=== PATIENT | female | born 1945 | race Caucasian/White ===

== ENCOUNTER 2017-04-29 16:10 | Inpatient (IN) ==
[2017-04-29] MEDS ORDERED: MORPHINE 2 MG/1 ML SYRINGE IV STA ×3 (16:41→21:30)
[2017-04-29] MEDS ORDERED: ONDANSETRON 4 MG/2 ML VIAL IV STA (16:41)
[2017-04-29 16:42] LABS: Basophils # 0.1 10*3/uL (0.0-0.2); Basophils % 0.3 % (0.0-0.8); Eosinophils # 0.3 10*3/uL (0.0-0.87); Eosinophils % 1.9 % (0.00-10.9); Hematocrit 36.2 VOL% (35.7-47.0); Hemoglobin 11.5 GM/DL (12.0-16.0); Immature Granulocytes % 1.5 %; Immature Granulocytes Absolute 0.26 #; Lymphocytes # 2.3 10*3/uL (1.4-4.0); Lymphocytes % 13.8 % (21.3-54.2); Mean Corpuscular HGB Conc 31.8 GM/DL (32-36); Mean Corpuscular Hemoglobin 29 PG (27-34); Mean Corpuscular Volume 91.4 FL (87-102); Mean Platelet Volume 8.8 FL (9.6-12.0); Monocytes # 1.4 10*3/uL (0.11-0.8); Monocytes % 8.4 % (1.7-12.7); Neutrophils # 12.5 10*3/uL (1.4-7.4); Neutrophils % 74.1 % (38.7-73.9); Platelet Count 228 T/CUMM (130-400); Red Blood Count 3.96 MC/CUMM (3.8-5.5); Red Cell Distribution Width 15.7 % (9.3-17.3); White Blood Count 16.8 T/CUMM (4-12)
[2017-04-29] MEDS ORDERED: MORPHINE 2 MG/1 ML SYRINGE ONE ×3 (16:42→21:21)
[2017-04-29] MEDS ORDERED: ONDANSETRON 4 MG/2 ML VIAL ONE (16:42)
--- NOTE | 2017-04-29 16:43 | EKG Report ---
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
[2017-04-29 17:06] LABS: Alanine Aminotransferase 31 U/L (13-56); Alkaline Phosphatase 76 U/L (45-117); Aspartate Amino Transferase 60 U/L (0-37); Blood Urea Nitrogen 17 MG/DL (7-18); Calcium 8.6 MG/DL (8.5-10.1); Glucose 108 MG/DL (74-106); Osmolality,Calculated 283.3 MOS/KG (273-304); Potassium 3.7 MMOL/L (3.5-5.1); Sodium 141 MMOL/L (136-145); Total Protein 5.6 G/DL (6.4-8.3); Troponin I Only < 0.015 NG/ML (0.00-0.045)
--- NOTE | 2017-04-29 17:12 | XRay Report ---
Exam: XR abdomen complete w decub Date: 04/29/2017 4:27 PM Comparison: 11/11/2016 Indication: Generalized abdominal pain Technique:[Supine and left lateral decubitus abdomen] Findings: Nonobstructed bowel gas pattern with no free air. Diffuse arterial calcifications. Degenerative changes with prior right total hip replacement and left hip surgery with old healed left intertrochanteric femoral and right pubic bone fractures. Impression: Nonobstructed bowel gas pattern with no free air. Postoperative findings in the hips. PROCEDURE INTERPRETED AT [facility] DEPARTMENT OF RADIOLOGY Final Report Signed by: Dr. Lakeshia Wagner
[2017-04-29 17:13] LABS: Lactic Acid 0.6 MMOL/L (0.4-2.0)
[2017-04-29 17:33] LABS: Apearance,Urine CLOUDY (Clear); Bacteria,Urine Many /HPF (Few); Bilirubin,Urine Negative (Negative); Blood, Urine Small mg/dL (Negative); Glucose,Urine (UA) Negative (Negative); Ketones,Urine Negative (Negative); Mucus,Urine Many /LPF (Occasional); Nitrite,Urine Positive (Negative); Protein,Urine Negative; RBC,Urine 14 /HPF (0-4); Squamous Epithelial Cell,Urine Occasional /HPF (0-10); Urine Color Yellow (Yellow); Urine Specific Gravity 1.015 (1.001-1.035); Urine Urobilinogen < 2.0 EU/DL (0.2-1.0); WBC,Urine 153 /HPF (0-6)
[2017-04-29] MEDS ORDERED: cefTRIAXone 1,000 MG in SODIUM CHLORIDE 0.9% 100 ML IV STA (18:22)
[2017-04-29] MEDS ORDERED: SODIUM CHLORIDE 0.9% 1,000 ML IV STA (18:22)
[2017-04-29] MEDS ORDERED: cefTRIAXone 1,000 MG VIAL ONE (18:24)
--- NOTE | 2017-04-29 19:09 | CT Report ---
Referring physician: Noel Abdul EXAM: CT abdomen and pelvis with contrast DATE: 04/29/2017 COMPARISON: None REASON: Generalized abdominal pain TECHNIQUE: Axial images of the abdomen and pelvis were obtained after administration of 100 cc of Omnipaque 350 IV contrast. Oral contrast was also administered. Coronal and sagittal reformatted images were also provided. Total DLP is 651.30 mGy*cm. FINDINGS: Small pleural effusions. Diffuse groundglass opacities with honeycombing/saccular bronchiectasis especially in the right middle lobe. Subsegmental atelectasis. Coronary artery calcifications. The liver is normal in size with significant distention of the gallbladder with hyperdense folds and wall thickening. Probable minimal pericholecystic fluid with no obvious calcified gallstones. CBD and bile ducts are minimally dilated. CBD measures 7 mm in the head of the pancreas. The spleen, pancreas, and adrenal glands have an unremarkable appearance. Cortical scarring in the kidneys with nonobstructing renal calculi with the largest measuring 3.5 mm in the right mid pole location. Calcification in the wall of the nondilated abdominal aorta with no adjacent adenopathy. No dilatation of the small bowel. Increased fecal material in the colon with no evidence of diverticulitis, appendicitis, free air, or free fluid. Atrophic uterus with limited evaluation of the urinary bladder due to metallic artifact. Prior right total hip replacement and postoperative findings in the left left hip. Old healed right pubic bone and left intertrochanteric femoral fracture. Evidence of prior compression fractures of all visualized thoracic and lumbar vertebra. Possible old healed fracture of the inferior sternum. IMPRESSION: Small pleural effusions with honeycombing/saccular bronchiectasis especially in the right middle lobe with diffuse groundglass opacities which can be seen with edema/infiltration. Significant distention of the gallbladder with gallbladder folds and wall thickening with probable minimal pericholecystic fluid. These findings can be seen with acute cholecystitis with associated minimal dilatation of the bile ducts. Ultrasound and/or biliary scan with ejection fraction may be helpful for further evaluation. Diffuse arterial calcifications including coronary artery calcifications, cortical scarring in the kidneys with nonobstructing renal calculi, atrophic uterus, prior right total hip replacement and postoperative findings a left hip, old healed right pubic bone and left intertrochanteric femoral fractures with osteopenia and fractures of all visualized vertebra. Possible additional old healed fracture of the inferior sternum. The CT exam was performed using one or more of the following dose reduction techniques: Automated exposure control and adjustment of the mA and/or kV according to patient size. PROCEDURE INTERPRETED AT [facility] DEPARTMENT OF RADIOLOGY Final Report Signed by: Dr. Lakeshia Wagner
--- NOTE | 2017-04-29 20:30 | Emergency Department Note ---
Madyson Johnson [place], am scribing for, and in the presence of, Noel Abdul Jr., MD 16:37. Chantell Johnson Marvin Jr., MD, personally performed the services described in this documentation, ascribed by Jorge Luis Coughlin in my presence, and it is both accurate and complete [id number] . Arrival - Arrival Chief Complaint: Chest Pain ED Nursing Triage Note: c/o cp and abd cramping onset today Mode of Arrival: Stretcher Limitations: No Limitations Source: Patient Time Seen by Provider: 04/29/17 16:27 - History of Present Illness HPI Narrative: This is a 71 y/o white female presenting to the ED with c/o generalized abdominal pain with more right sided abdominal pain than left. She states the pain onset this morning at approximately 1000 and has worsened throughout the course of the day. This has happened to her in the past. She describes the pain as cramping and believes she may have been food poisoned. Pt took Lortab for her pain but states this did not help. Pt is nauseated and has dry heaved but denies vomiting, fever, chills, diarrhea, back pain, KENNY, vision change, and dysuria. Her PMHx is consistent with HTN, cardiac dysrhythmia, CHF, anxiety disorder, depression, cerebrovascular accident, pulmonary HTN, and reoccuring urinary tract infection. Consistency: constant Severity: moderate Allergies/Adverse Reactions: Allergies Allergy/AdvReac Type Severity Reaction Status Date / Time promethazine [From Phenergan] Allergy Intermediate Cramping Verified 12/26/16 15 :06 of the Muscles Home Medications: Home Medications Medication Instructions Recorded Confirmed Type Sertraline HCl 50 mg PO DAILY 04/03/15 12/28/16 History dilTIAZem HCl [Cartia XT] 120 mg PO DAILY 04/03/15 12/28/16 History Metoprolol Tartrate Tab [Lopressor 50 mg PO BID #30 tablet 04/04/15 12/28/16 Rx Tab] Docusate Sodium Cap [Colace Cap] 100 mg PO BID #60 capsule 04/20/15 12/28/16 Rx HYDROcodone/ACETAMIN 10-325 [[place] 1 tablet PO Q4-6H PRN 02/05/16 12/28/16 History 10-325] Sildenafil [Revatio] 20 mg PO TID #90 tablet 02/09/16 12/28/16 Rx acetaZOLAMIDE TAB [Diamox Tab] 250 mg PO BID #60 tablet 02/09/16 12/28/16 Rx Apixaban [Eliquis] 2.5 mg PO BID 12/07/16 12/28/16 History Pantoprazole Tab [Protonix Tab] 40 mg PO DAILY 12/07/16 12/28/16 History Potassium Chloride 10 meq PO BID 12/07/16 12/28/16 History Sertraline [Zoloft] 50 mg PO DAILY 12/07/16 12/28/16 History predniSONE TAB [PredniSONE] 20 mg PO DAILY 12/07/16 12/28/16 History Furosemide 20 mg PO DAILY 12/28/16 12/28/16 History Methenamine Hippurate 1 gm PO BID 12/28/16 12/28/16 History Review of System - Review of System 12 point system: reviewed and no additional remarkable complaints except as stated - Review of System Constitutional: Absent: chills, fever, weakness Eyes: Absent: vision change Head/Ears/Nose/Throat: Absent: nasal drainage Respiratory: Absent: cough, wheezing Cardiovascular: Absent: chest pain, dyspnea on exertion, syncope Gastrointestinal: Present: abdominal pain (generalized ), nausea (dry heaved). Absent: vomiting, diarrhea Genitourinary female: Absent: dysuria Musculoskeletal: Absent: arm pain, back pain, leg pain, neck pain Skin: Absent: rash Neurological: Absent: headache, weakness, confusion, vertigo Psychiatric: Absent: anxiety Endocrine: Absent: fatigue Allergic/Immunologic: Absent: facial swelling Medical,Surgical,& Family Hx - Medical History Cardio: History of: Cardiac Dysrhythmia, Cerebrovascular Disease, CHF, Hypertension, Cardiovascular Problems Psychological: History of: Anxiety Disorders, Depression Neurology: History of: Cerebrovascular Accident (08/2013), Peripheral Neuropathy No history of: Seizures HEENT: History of: Ear Problem ([place]), HEENT Problems Rheumatology: History of;: Rheumatoid Arthritis (bilateral knee replacement), Rheumatological Problems Respiratory: History of: Pulmonary Hypertension, Pneumonia, Respiratory Problems (suspected pulmonary fibrosis) Genitourinary: History of: Recurring Urinary Tract Infections Gastrointestinal: History of: GERD Musculoskeletal: History of: Back/Neck Problems ("shattered spine", patient has a degenerative atlantoaxial joint and odonto), Degenerative Disk Disease, Musculoskeletal Problems (septic in knee, 3 cervical vertabra fx,MUST HAVE C- COLLAR ON AMBULATING) Hematology: No history of: Blood Transfusion Reaction - Surgical History Thoracic Surgeries: Patient denies;: Organ Transplant, Lobectomy Neurologic Surgeries: Patient denies: Neurologic Surgery HEENT Surgeries: Patient denies: Eye Surgery, Tonsilectomy & Adenoidectomy Orthopedic Surgeries: Surgical HX of;: Total Hip Replacement (bl hip replacement ), Total Knee Replacement (BL KNEE REPLACEMENT) - Family History Family History: Reports;: Family Cancer ([place]), Family Hypertension (son), Family Psychiatric Problems (mother alzheimer's) - Social History Smoking Status: Never smoker Frequency of Alcohol Use: None Type of Drug Use: None Exam Physical Examination: General: Well-developed well-nourished, no apparent distress. Head: Normocephalic, atraumatic. Eyes: PERRLA, EOMI. Nose: No obvious acute deformities or discharge. Mouth: No obvious acute injury. Neck: Full range of motion without obvious pain. No midline tender to palpation. Lymphatic: no significant lymphadenopathy noted. Lungs: Clear to auscultation bilaterally, normal and equal air movement bilaterally, no obvious rales or wheezing. Heart: regular rate and rhythm, no obvious mummers. Abdomen: Nondistended, soft, tender to palpation which localizes a little more to the right lower quadrant. Skin: No obivous acute lesions noted Musculoskeletal: Chronic joint deformities consistent with rheumatoid arthritis. Sister and patient say this is chronic and not changed. Neurological: No focal findings, cranial nerves II through XII grossly normal. Psychiatric: Appropriate mood.. : Deferred Vital Signs: Vital Signs Temperature 96.4 F L 04/29/17 16:14 Pulse Rate 49 L 04/29/17 16:14 Respiratory Rate 18 04/29/17 16:14 Blood Pressure 169/82 04/29/17 16:14 O2 Sat by Pulse Oximetry 99 04/29/17 16:14 Course Course Narrative: Differential diagnosis, appendicitis, bowel obstruction, constipation, inflammatory diseases, diverticulitis - Reevaluation(s) Reevaluation #1: Patient's clinical picture and test consistent with acute cholecystitis and urinary tract infection. I talked to Dr. Dayna White and he asked to admit the patient to Dr. Murcia and he would consult. I then called Dr. Murcia and he accepts admission for this patient. He says put her on Zosyn, pain medicine , IV fluids Time: 20:20 Results - Labs CBC & BMP: 04/29/17 16:34 04/29/17 16:34 Lab Results: I have reviewed the patients labs Labs: Laboratory Tests 04/29/17 16:34 WBC 16.8 H RBC 3.96 Hgb 11.5 L Hct 36.2 MCV 91.4 MCH 29 MCHC 31.8 L RDW 15.7 Plt Count 228 MPV 8.8 L Neut % (Auto) 74.1 H Lymph % (Auto) 13.8 L Grant % (Auto) 8.4 Eos % (Auto) 1.9 Baso % (Auto) 0.3 Neut # (Auto) 12.5 H Lymph # (Auto) 2.3 Grant # (Auto) 1.4 H Eos # (Auto) 0.3 Baso # (Auto) 0.1 Immature Gran % 1.5 Nucleated RBC % 0.0 Immature Gran # 0.26 Nucleated RBCs # 0.00 Laboratory Tests 04/29/17 16:34 Urine Color Yellow Urine Appearance Cloudy Urine pH 5.0 Ur Specific [place] 1.015 Urine Protein Negative Urine Glucose (UA) Negative Urine Ketones Negative Urine Blood Small Urine Nitrate Positive H Urine Bilirubin Negative Urine Urobilinogen < 2.0 H Urine Leukocytes Moderate H Urine RBC 14 Urine WBC 153 Ur Squamous Epith Cells Occasional Urine Bacteria Many Urine Mucus Many Ur Culture Indicated? Results to follow - EKG EKG results: interpreted by ERMD (Heart rate 50, normal sinus rhythm, narrow complex QRS complexes without obvious acute ST changes.) - Diagnostic Findings Procedure: Abdominal x-ray: report reviewed by me, image reviewed by me ( Nonobstructed bowel gas pattern with no free air. Postoperative findings in the hips. ), CT Abdomen and Pelvis: report reviewed by me, image reviewed by me (Small pleural effusions with honeycombing/saccular bronchiectasis especially in the right middle lob with diffuse groundglass opacities which can be seen with edema/infiltration. Signifcant distention of the gallbladder with gallbladder folds and wall thickening with probable minimal pericholecysytic fluid. These findings can be seen with acute cholecystitis with associated minimal dilation of the bile ducts. ) Disposition Clinical Impression: Abdominal pain, Acute cholecystitis, Urinary tract infection Case discussed with: patient, patient's family Disposition: Still a Patient Condition: Stable Time of Disposition: 20:29
[2017-04-29] MEDS: DEXTROSE 5% NACL 0.45% 1,000 ML IV SCH (22:12)
[2017-04-29] MEDS: PIPERACILLIN/TAZOBACTAM 3,375 MG in SODIUM CHLORIDE 0.9% 100 ML IV SCH (22:16)
[2017-04-29] MEDS: HYDROmorphone 2 MG/1 ML VIAL IV PRN (22:33)
[2017-04-30] MEDS: ONDANSETRON 4 MG/2 ML VIAL IV PRN (04:13)
[2017-04-30] MEDS: HYDROmorphone 2 MG/1 ML VIAL IV PRN ×5 (05:35→23:47)
[2017-04-30] MEDS: PIPERACILLIN/TAZOBACTAM 3,375 MG in SODIUM CHLORIDE 0.9% 100 ML IV SCH ×3 (05:37→20:50)
--- NOTE | 2017-04-30 08:04 | Family Practice History&Phys ---
Assessment and Plan (1) Acute cholecystitis Status: Acute Assessment and plan: 04/30/2017: Ultrasound gallbladder will be ordered. Surgery has been consulted Current Visit: Yes History of Present Illness Chief complaint: Abdominal pain History of present illness: Ms. Chapman is a 71 year old female Patient is a 71-year-old white female with long history of poorly controlled rheumatoid arthritis who presents emergency room with increasing abdominal pain with nausea and vomiting. She has not had any fever according the family. She does have a history of recurrent urinate tract infections for which she has been taking Hiprex for prophylaxis. Patient states she does not have any dysuria or frequency. Patient states she cannot keep anything down. Seen in the emergency room found to have a dilated gallbladder with pericholecystic fluid. Her lipase was normal as were her liver function studies. She is a very poor candidate for surgery and she is on blood thinners and has been on long-term steroid use. Her wound healing would certainly be impaired. I think she needs a gallbladder ultrasound and surgery has been consulted. Home Medications Medication Instructions Recorded Confirmed Type dilTIAZem HCl [Cartia XT] 120 mg PO DAILY 04/03/15 04/30/17 History Metoprolol Tartrate Tab [Lopressor 50 mg PO BID #30 tablet 04/04/15 04/30/17 Rx Tab] Docusate Sodium Cap [Colace Cap] 100 mg PO BID #60 capsule 04/20/15 04/30/17 Rx HYDROcodone/ACETAMIN 10-325 [[place] 1 tablet PO Q4-6H PRN 02/05/16 04/30/17 History 10-325] Sildenafil [Revatio] 20 mg PO TID #90 tablet 02/09/16 04/30/17 Rx acetaZOLAMIDE TAB [Diamox Tab] 250 mg PO BID #60 tablet 02/09/16 04/30/17 Rx Apixaban [Eliquis] 2.5 mg PO BID 12/07/16 04/30/17 History Pantoprazole Tab [Protonix Tab] 40 mg PO DAILY 12/07/16 04/30/17 History Potassium Chloride 10 meq PO BID 12/07/16 04/30/17 History Sertraline [Zoloft] 50 mg PO DAILY 12/07/16 04/30/17 History predniSONE TAB [PredniSONE] 20 mg PO DAILY 12/07/16 04/30/17 History Furosemide 20 mg PO DAILY 12/28/16 04/30/17 History Methenamine Hippurate 1 gm PO BID 12/28/16 04/30/17 History Allergies Allergy/AdvReac Type Severity Reaction Status Date / Time promethazine [From Phenergan] Allergy Intermediate Cramping Verified 12/26/16 15 :06 of the Muscles - Constitutional Constitutional: Present: weakness. Absent: chills, fever(s), night sweats, weight gain, weight loss - EENT Eyes: Absent: blurry vision, loss of vision Ears: Absent: decreased hearing, ear pain Nose, mouth and throat: Absent: nasal congestion, sinus pressure, sore throat - Cardiovascular Cardiovascular: Present: dyspnea on exertion. Absent: chest pain at rest, claudication, dyspnea, orthopnea, palpitations, PND - Respiratory Respiratory: Absent: cough, dyspnea, wheezing - Gastrointestinal Gastrointestinal: Present: abdominal pain, nausea, vomiting. Absent: hematemesis, hematochezia - Genitourinary Genitourinary: Absent: dysuria, urinary frequency, urinary hesitancy - Musculoskeletal Musculoskeletal: Present: arthralgias, back pain, joint swelling - Neurological Neurological: Absent: abnormal gait, convulsions, dizziness, focal weakness, numbness, radicular pain - Psychiatric Psychiatric: Absent: anxiety, confusion, depression - Endocrine Endocrine: Absent: fatigue, polydipsia, polyphagia - Hematologic/Lymphatic Hematologic/Lymphatic: Absent: easy bleeding, easy bruising Medical,Surgical,& Family Hx - Medical History Cardio: History of: Cardiac Dysrhythmia, Cerebrovascular Disease, CHF, Hypertension, Cardiovascular Problems Psychological: History of: Anxiety Disorders, Depression Neurology: History of: Cerebrovascular Accident (08/2013), Peripheral Neuropathy No history of: Seizures HEENT: History of: Ear Problem ([place]), HEENT Problems Rheumatology: History of;: Rheumatoid Arthritis (bilateral knee replacement), Rheumatological Problems Respiratory: History of: COPD, Pulmonary Hypertension, Pneumonia, Respiratory Problems (suspected pulmonary fibrosis) No history of: Obstructive Sleep Apnea (uses cpap at night R/T pulmonary fibrosis) Genitourinary: History of: Recurring Urinary Tract Infections Gastrointestinal: History of: GERD Musculoskeletal: History of: Back/Neck Problems ("shattered spine", patient has a degenerative atlantoaxial joint and odonto), Degenerative Disk Disease, Musculoskeletal Problems (septic in knee, 3 cervical vertabra fx,MUST HAVE C- COLLAR ON AMBULATING) Hematology: History of: Anemia (chronic) No history of: Blood Transfusion Reaction - Surgical History Thoracic Surgeries: Patient denies;: Organ Transplant, Lobectomy Neurologic Surgeries: Patient denies: Neurologic Surgery HEENT Surgeries: Patient denies: Eye Surgery, Tonsilectomy & Adenoidectomy Orthopedic Surgeries: Surgical HX of;: Total Hip Replacement (bl hip replacement ), Total Knee Replacement (BL KNEE REPLACEMENT) - Family History Family History: Reports;: Family Cancer (SISTER), Family Hypertension (son), Family Psychiatric Problems (mother alzheimer's) - Social History Smoking Status: Never smoker Frequency of Alcohol Use: None Type of Drug Use: None Exam - Constitutional Vitals: Period Temp Pulse Resp BP Sys/Carroll Pulse Ox Last 24 Hr 96.4 F-98.5 F 49-98 18-24 113-169/61-82 93-99 Exam: General: Objective patient is a well-developed white female in no acute distress. She is able to give good history when she is able to hear the questions. He is quite hard of hearing. HEENT: Pupils equal and reactive to light. Patent nares and airway Neck: No meningismus, adenopathy, thyromegaly. There are no auscultated carotid bruits. Cardiovascular: Regular rhythm. No murmurs or gallops Chest: Patient has scattered inspiratory and expiratory rales and rhonchi. This is unchanged from prior exams. Abdomen: Patient's noted to have direct right upper quadrant tenderness with positive Lewis sign. Bowel sounds were appreciated.. Neuro: Cranial nerves intact and DTRs and strength symmetric in all extremities. Dermatologic: No evidence of abnormal lesions or masses. Musculoskeletal: Patient suffering the ravages of rheumatoid arthritis with multiple joint deformities and swelling. Extremities: There is no calf swelling or tenderness. Results - Labs CBC & BMP: 04/29/17 16:34 04/29/17 16:34 Lab Results: I have reviewed the past 24 hour labs
--- NOTE | 2017-04-30 09:23 | General Surg History&Physical ---
Assessment and Plan - Time spent with patient Time spent with patient: Greater than 30 minutes (1) Acute cholecystitis Status: Acute Assessment and plan: I think this is likely acute acalculous cholecystitis. We will confirm this with ultrasound. If this is the case then I think she would best be treated with percutaneous cholecystostomy. I discussed her options for treatment with her and her daughter at length. She is clearly a high risk for laparoscopic cholecystectomy for perioperative complications morbidity and mortality. I think that she would do better with percutaneous drainage if this is the case. We can arrange this today through interventional radiology. I agree with IV antibiotics. Current Visit: Yes History of Present Illness Chief complaint: Abdominal pain History of present illness: Ms. Chapman is a 71 year old female Who developed upper abdominal pain mostly in the right upper quadrant yesterday. Pain has been constant. It is been worse with movement. It is been associated with nausea. CT scan of her abdomen showed a distended gallbladder. The pain is moderate in severity and does not radiate. She does not know of aggravating or alleviating factors. Home Medications Medication Instructions Recorded Confirmed Type dilTIAZem HCl [Cartia XT] 120 mg PO DAILY 04/03/15 04/30/17 History Metoprolol Tartrate Tab [Lopressor 50 mg PO BID #30 tablet 04/04/15 04/30/17 Rx Tab] Docusate Sodium Cap [Colace Cap] 100 mg PO BID #60 capsule 04/20/15 04/30/17 Rx HYDROcodone/ACETAMIN 10-325 [[place] 1 tablet PO Q4-6H PRN 02/05/16 04/30/17 History 10-325] Sildenafil [Revatio] 20 mg PO TID #90 tablet 02/09/16 04/30/17 Rx acetaZOLAMIDE TAB [Diamox Tab] 250 mg PO BID #60 tablet 02/09/16 04/30/17 Rx Apixaban [Eliquis] 2.5 mg PO BID 12/07/16 04/30/17 History Pantoprazole Tab [Protonix Tab] 40 mg PO DAILY 12/07/16 04/30/17 History Potassium Chloride 10 meq PO BID 12/07/16 04/30/17 History Sertraline [Zoloft] 50 mg PO DAILY 12/07/16 04/30/17 History predniSONE TAB [PredniSONE] 20 mg PO DAILY 12/07/16 04/30/17 History Furosemide 20 mg PO DAILY 12/28/16 04/30/17 History Methenamine Hippurate 1 gm PO BID 12/28/16 04/30/17 History Allergies Allergy/AdvReac Type Severity Reaction Status Date / Time promethazine [From Phenergan] Allergy Intermediate Cramping Verified 12/26/16 15 :06 of the Muscles Medical,Surgical,& Family Hx - Medical History Cardio: History of: Cardiac Dysrhythmia, Cerebrovascular Disease, CHF, Hypertension, Cardiovascular Problems Psychological: History of: Anxiety Disorders, Depression Neurology: History of: Cerebrovascular Accident (08/2013), Peripheral Neuropathy No history of: Seizures HEENT: History of: Ear Problem ([place]), HEENT Problems Rheumatology: History of;: Rheumatoid Arthritis (bilateral knee replacement), Rheumatological Problems Respiratory: History of: COPD, Pulmonary Hypertension, Pneumonia, Respiratory Problems (suspected pulmonary fibrosis) No history of: Obstructive Sleep Apnea (uses cpap at night R/T pulmonary fibrosis) Genitourinary: History of: Recurring Urinary Tract Infections Gastrointestinal: History of: GERD Musculoskeletal: History of: Back/Neck Problems ("shattered spine", patient has a degenerative atlantoaxial joint and odonto), Degenerative Disk Disease, Musculoskeletal Problems (septic in knee, 3 cervical vertabra fx,MUST HAVE C- COLLAR ON AMBULATING) Hematology: History of: Anemia (chronic) No history of: Blood Transfusion Reaction - Surgical History Thoracic Surgeries: Patient denies;: Organ Transplant, Lobectomy Neurologic Surgeries: Patient denies: Neurologic Surgery HEENT Surgeries: Patient denies: Eye Surgery, Tonsilectomy & Adenoidectomy Orthopedic Surgeries: Surgical HX of;: Total Hip Replacement (bl hip replacement ), Total Knee Replacement (BL KNEE REPLACEMENT) - Family History Family History: Reports;: Family Cancer ([place]), Family Hypertension (son), Family Psychiatric Problems (mother alzheimer's) - Social History Smoking Status: Never smoker Frequency of Alcohol Use: None Type of Drug Use: None Exam - Constitutional Vitals: Period Temp Pulse Resp BP Sys/Carroll Pulse Ox Last 24 Hr 96.4 F-98.5 F 49-98 18-24 113-169/61-82 93-99 General appearance: no acute distress - Head Head exam: Present: normocephalic - Eye Eye exam: Absent: scleral icterus - ENT Mouth exam: Present: normal voice - Respiratory Respiratory exam: Present: clear to auscultation bilaterally. Absent: accessory muscle use - Cardiovascular Cardiovascular exam: Present: RRR - GI/Abdominal GI/Abdominal exam: Present: tenderness, soft. Absent: distended, guarding, Lewis's sign, rebound - Extremities Exam Extremities exam: Absent: edema - Back Exam Back exam: Present: normal inspection - Neurological Exam Neurological exam: Present: alert, oriented X3. Absent: motor sensory deficit Speech: Present: normal - Skin Skin exam: Present: normal color - Constitutional Constitutional: Present: anorexia. Absent: chills, fever(s) - Cardiovascular Cardiovascular: Present: dyspnea, dyspnea on exertion. Absent: chest pain at rest, chest pain with activity, syncope - Respiratory Respiratory: Present: dyspnea, dyspnea on exertion. Absent: cough, hemoptysis - Gastrointestinal Gastrointestinal: Present: abdominal pain, nausea. Absent: hematemesis, hematochezia, vomiting, jaundice - Genitourinary Genitourinary: Absent: hematuria - Musculoskeletal Musculoskeletal: Absent: back pain - Neurological Neurological: Absent: focal weakness, syncope - Endocrine Endocrine: Absent: polyuria Hematologic/Lymphatic: Absent: easy bleeding, easy bruising Results - Labs CBC & BMP: 04/29/17 16:34 04/29/17 16:34 Lab Results: I have reviewed the past 24 hour labs - Diagnostic Findings Procedure: CT Abdomen and Pelvis: report reviewed by me, Ultrasound: pending
--- NOTE | 2017-04-30 09:30 | Ultrasound Report ---
US gallbladder Indication: Distended gallbladder. Right upper quadrant abdominal pain. Comparison: None. Technique: Using transcutaneous probe, ultrasound imaging of the right upper quadrant was performed. Ultrasound images were captured and stored. Imaged structures include the liver, gallbladder, pancreas, right kidney, aorta, and inferior vena cava. Findings: Pancreas is not well-visualized. Images submitted of the liver demonstrate no focal hepatic mass. Architectural detail was not well visualized and images appear dark. Color flow is present within the interrogated portal and hepatic venous segments. The gallbladder demonstrates at least one shadowing partially calcified to calcified stone within the neck of the gallbladder. Additional stones are suggested. Small amount of pericholecystic fluid is present. The gallbladder wall measures up to 3.5 mm. Common bile duct measures 4.5 mm. Right kidney measures 9.7 cm in craniocaudal dimension. Aorta and inferior vena cava are not included on this study secondary to bowel gas. Impression: 1. Combination of gallbladder wall thickening in the setting of calcified gallstones and pericholecystic fluid is considered compatible with acute cholecystitis. 04/30/2017 9:25 AM PROCEDURE INTERPRETED AT [facility] DEPARTMENT OF RADIOLOGY Final Report Signed by: Dr. Leroy Martin
[2017-04-30] MEDS: FUROSEMIDE 20 MG TABLET PO SCH (09:37)
[2017-04-30] MEDS: predniSONE 20 MG TABLET PO SCH (09:37)
[2017-04-30] MEDS: PANTOPRAZOLE 40 MG TABLET PO SCH (09:37)
[2017-04-30] MEDS: DILTIAZEM CD 120 MG CAPSULE PO SCH (09:48)
[2017-04-30] MEDS: DOCUSATE SODIUM 100 MG CAPSULE PO SCH ×2 (09:49→20:20)
[2017-04-30] MEDS: acetaZOLAMIDE 250 MG TABLET PO SCH ×2 (09:49→20:21)
[2017-04-30] MEDS: METHENAMINE HIPPURATE 1 GM TABLET PO SCH ×2 (09:49→20:21)
[2017-04-30] MEDS: SILDENAFIL 20 MG TABLET PO SCH ×3 (09:50→20:21)
[2017-04-30] MEDS: SERTRALINE 50 MG TABLET PO SCH (09:50)
[2017-04-30] MEDS: METOPROLOL TARTRATE 50 MG TABLET PO SCH ×2 (09:50→20:21)
[2017-04-30] MEDS: POTASSIUM CHLORIDE 10 MEQ TABLET PO SCH ×2 (09:50→20:21)
[2017-04-30] MEDS: DEXTROSE 5% NACL 0.45% 1,000 ML IV SCH ×2 (10:00→19:57)
[2017-04-30] MEDS: MORPHINE 2 MG/1 ML SYRINGE IV PRN ×2 (12:56→16:46)
--- NOTE | 2017-04-30 16:54 | Inventional Radiology Consult ---
Assessment and Plan - Time spent with patient Time spent with patient: Less than 30 minutes (1) Acute cholecystitis Problem details: distended glabladder with RUQ pain Status: Acute Assessment and plan: Not a good surgical candidate as noted in the surgical H&P. I reviewed the imaging and agree with the assessment at this point. I discussed the procedure with the patient and daughter. All questions were answered. Risks and benefits were discussed. We will plan for the case traversing in the morning. Patient should be n.p.o. after midnight. Current Visit: Yes IR Consult - Data of Consult Patient: new to practice Consult date: 04/30/17 Requesting Physician: Jun Mcintosh III. - Consult Narrative Reason for consult: acalculous cholecystitis History of present illness: Chapman is a 71 year old F Admitted with right upper quadrant pain. Imaging demonstrates a distended gallbladder and ultrasound demonstrates gallbladder wall thickening without stones, which is most consistent with acalculous cholecystitis. On my interview, the patient is in some distress with right upper quadrant pain. At times, she is however drowsy and appears to fall asleep briefly. Only major complaints are being n.p.o. all day. She has no chest pain or shortness of breath although she does have a history of pulmonary fibrosis and immunosuppression due to long-term high-dose steroids for chronic arthritis. ASA level: III. - Home Medications and Allergies Home Medications: Home Medications Medication Instructions Recorded Confirmed Type RX: dilTIAZem HCl [Cartia XT] 120 mg PO DAILY 04/03/15 04/30/17 History RX: Metoprolol Tartrate Tab 50 mg PO BID #30 tablet 04/04/15 04/30/17 Rx [Lopressor Tab] RX: Docusate Sodium Cap [Colace 100 mg PO BID #60 capsule 04/20/15 04/30/17 Rx Cap] RX: HYDROcodone/ACETAMIN 10-325 1 tablet PO Q4-6H PRN 02/05/16 04/30/17 History [Hart 10-325] RX: Sildenafil [Revatio] 20 mg PO TID #90 tablet 02/09/16 04/30/17 Rx RX: acetaZOLAMIDE TAB [Diamox Tab] 250 mg PO BID #60 tablet 02/09/16 04/30/17 Rx RX: Apixaban [Eliquis] 2.5 mg PO BID 12/07/16 04/30/17 History RX: Pantoprazole Tab [Protonix Tab] 40 mg PO DAILY 12/07/16 04/30/17 History RX: Potassium Chloride 10 meq PO BID 12/07/16 04/30/17 History RX: Sertraline [Zoloft] 50 mg PO DAILY 12/07/16 04/30/17 History RX: predniSONE TAB [PredniSONE] 20 mg PO DAILY 12/07/16 04/30/17 History RX: Furosemide 20 mg PO DAILY 12/28/16 04/30/17 History RX: Methenamine Hippurate 1 gm PO BID 12/28/16 04/30/17 History Allergies/Adverse Reactions: Allergies Allergy/AdvReac Type Severity Reaction Status Date / Time promethazine [From Phenergan] Allergy Intermediate Cramping Verified 12/26/16 15 :06 of the Muscles 12 point system: reviewed and no additional remarkable complaints except as stated - Constitutional Constitutional: Present: fatigue, fever(s) - Cardiovascular Cardiovascular: Absent: chest pain at rest - Respiratory Respiratory: Present: dyspnea on exertion, wheezing - Musculoskeletal Musculoskeletal: Present: arthralgias, joint swelling, limited range of motion - Hematologic/Lymphatic Hematologic/Lymphatic: Present: easy bruising Medical,Surgical,& Family Hx - Medical History Cardio: History of: Cardiac Dysrhythmia, Cerebrovascular Disease, CHF, Hypertension, Cardiovascular Problems Psychological: History of: Anxiety Disorders, Depression Neurology: History of: Cerebrovascular Accident (08/2013), Peripheral Neuropathy No history of: Seizures HEENT: History of: Ear Problem ([place]), HEENT Problems Rheumatology: History of;: Rheumatoid Arthritis (bilateral knee replacement), Rheumatological Problems Respiratory: History of: COPD, Pulmonary Hypertension, Pneumonia, Respiratory Problems (suspected pulmonary fibrosis) No history of: Obstructive Sleep Apnea (uses cpap at night R/T pulmonary fibrosis) Genitourinary: History of: Recurring Urinary Tract Infections Gastrointestinal: History of: GERD Musculoskeletal: History of: Back/Neck Problems ("shattered spine", patient has a degenerative atlantoaxial joint and odonto), Degenerative Disk Disease, Musculoskeletal Problems (septic in knee, 3 cervical vertabra fx,MUST HAVE C- COLLAR ON AMBULATING) Hematology: History of: Anemia (chronic) No history of: Blood Transfusion Reaction - Surgical History Thoracic Surgeries: Patient denies;: Organ Transplant, Lobectomy Neurologic Surgeries: Patient denies: Neurologic Surgery HEENT Surgeries: Patient denies: Eye Surgery, Tonsilectomy & Adenoidectomy Orthopedic Surgeries: Surgical HX of;: Total Hip Replacement (bl hip replacement ), Total Knee Replacement (BL KNEE REPLACEMENT) - Family History Family History: Reports;: Family Cancer ([place]), Family Hypertension (son), Family Psychiatric Problems (mother alzheimer's) - Social History Smoking Status: Never smoker Frequency of Alcohol Use: None Type of Drug Use: None Exam - Labs CBC & BMP: 04/29/17 16:34 04/29/17 16:34 Lab Results: I have reviewed the past 24 hour labs Image Studies: u/s and CT imaging reviewed - Constitutional Vitals: Period Temp Pulse Resp BP Sys/Carroll Pulse Ox Last 24 Hr 97.4 F-99.0 F 67-112 18-24 97-151/55-79 93-99 General appearance: normal weight - Eye Eye exam: Present: EOMI, scleral icterus - ENT ENT exam: Present: other (very hard of hearing) - Respiratory Respiratory exam: Present: clear to auscultation bilaterally, prolonged expiratory phase. Absent: stridor, wheezes - Cardiovascular Cardiovascular exam: Present: regular rate and rhythm - GI/Abdominal GI/Abdominal exam: Present: guarding, hyperactive bowel sounds, tenderness (RUQ) - Neurological Exam Neurological exam: Present: alert, oriented X3 - Psychiatric Psychiatric exam: Present: normal affect, normal mood - Skin Skin exam: Present: normal color, dry
[2017-04-30 18:22] LABS: INR 1.2; PT Patient Result 12.4 SECS
[2017-05-01] MEDS: DEXTROSE 5% NACL 0.45% 1,000 ML IV SCH ×2 (01:50→12:49)
[2017-05-01] MEDS: MORPHINE 2 MG/1 ML SYRINGE IV PRN (03:13)
[2017-05-01] MEDS: ONDANSETRON 4 MG/2 ML VIAL IV PRN (03:22)
[2017-05-01] MEDS: PIPERACILLIN/TAZOBACTAM 3,375 MG in SODIUM CHLORIDE 0.9% 100 ML IV SCH ×3 (05:17→20:44)
[2017-05-01] MEDS: HYDROmorphone 2 MG/1 ML VIAL IV PRN ×2 (05:34→09:07)
[2017-05-01] MEDS: DILTIAZEM CD 120 MG CAPSULE PO SCH ×2 (07:12→08:03)
[2017-05-01] MEDS: METOPROLOL TARTRATE 50 MG TABLET PO SCH ×3 (07:12→20:47)
[2017-05-01] MEDS: SODIUM CHLORIDE 0.45% 1,000 ML IV SCH (07:25)
[2017-05-01] MEDS ORDERED: fentaNYL 100 MCG/2 ML VIAL ONE (07:42)
[2017-05-01] MEDS ORDERED: MIDAZOLAM 2 MG/2 ML VIAL ONE (07:43)
[2017-05-01] MEDS ORDERED: MIDAZOLAM 2 MG/2 ML VIAL IV ONE (08:00)
[2017-05-01] MEDS ORDERED: fentaNYL 100 MCG/2 ML VIAL IV ONE (08:00)
[2017-05-01] MEDS ORDERED: DIAZEPAM 5 MG TABLET PO ONE (08:00)
[2017-05-01] MEDS: DOCUSATE SODIUM 100 MG CAPSULE PO SCH ×2 (08:01→20:42)
[2017-05-01] MEDS: acetaZOLAMIDE 250 MG TABLET PO SCH ×2 (08:01→20:47)
--- NOTE | 2017-05-01 08:01 | Family Practice Progress Note ---
Family Practice - PN: Subj Interval history: Patient had a fretful night and still in quite a bit of pain. Dr. Dayna White is consulted interventional radiology for percutaneous cholecystostomy and stone manipulation. Patient understands the necessity to proceed as does her daughter. Exam (Progress Note) - Constitutional Vitals: Period Temp Pulse Resp BP Sys/Carroll Pulse Ox Last 24 Hr 97.8 F-99.0 F 105-118 18-20 97-131/55-70 92-95 Exam: Objective a well-developed white female who is awake and alert. Patient states she still having some discomfort but appears comfortable in bed. Cardiovascular: Heart rates regular without murmurs or gallops. Respiratory: Patient has scattered rhonchitic and coarse rales bilaterally. Abdomen: Patient has persistent right upper quadrant tenderness. Results - Labs CBC & BMP: 04/29/17 16:34 04/29/17 16:34 Lab Results: I have reviewed the past 24 hour labs Assessment and Plan (1) Acute cholecystitis Problem details: distended glabladder with RUQ pain Status: Acute Assessment and plan: 04/30/2017: Ultrasound gallbladder will be ordered. Surgery has been consulted 05/01/2017: Patient is scheduled for percutaneous cholecystostomy. Current Visit: Yes
[2017-05-01] MEDS: FUROSEMIDE 20 MG TABLET PO SCH ×2 (08:02→17:51)
[2017-05-01] MEDS: SILDENAFIL 20 MG TABLET PO SCH ×3 (08:02→20:42)
[2017-05-01] MEDS: POTASSIUM CHLORIDE 10 MEQ TABLET PO SCH ×2 (08:02→20:47)
[2017-05-01] MEDS: PANTOPRAZOLE 40 MG TABLET PO SCH (08:02)
[2017-05-01] MEDS: predniSONE 20 MG TABLET PO SCH (08:02)
[2017-05-01] MEDS: METHENAMINE HIPPURATE 1 GM TABLET PO SCH ×2 (08:02→20:47)
[2017-05-01] MEDS: SERTRALINE 50 MG TABLET PO SCH (08:03)
--- NOTE | 2017-05-01 08:25 | Post Interventional Procedure ---
Pre-op diagnosis: acute cholecystitis Post-op diagnosis: same Procedure: u/s and fluoro guided cholecystostomy tube placement Contrast: 10 mL Flouroscopy: approx 1 min Radiologist: Mehrdad Lora Anesthesia: local Specimens: none sent Estimated blood loss: none Complications: none Condition: stable Description/Findings: 10Fr drain placed via transhepatic approach into the gallbladder. No issues and patient tolerated well. Will leave to drain several weeks. With large gallstone seen in the neck, she will likely need cholecystectomy at some point when deemed ready by surgery. Assessment and Plan - Time spent with patient Time spent with patient: Less than 30 minutes (1) Acute cholecystitis Problem details: distended glabladder with RUQ pain Status: Acute Assessment and plan: Not a good surgical candidate as noted in the surgical H&P. I reviewed the imaging and agree with the assessment at this point. I discussed the procedure with the patient and daughter. All questions were answered. Risks and benefits were discussed. We will plan for the case traversing in the morning. Patient should be n.p.o. after midnight. Current Visit: Yes
--- NOTE | 2017-05-01 08:40 | Event Note ---
Came by this morning and patient is in interventional radiology.
--- NOTE | 2017-05-01 09:09 | XRay Report ---
History: Respiratory preop evaluation. Right upper quadrant pain Date: 05/01/2017 Study: Chest x-ray AP portable Comparison exam: December 10, 2016 There is cardiomegaly. The pulmonary vasculature is slightly prominent. The mediastinal contours are unchanged. There is some strandy atelectatic change in the lower lungs. There is some patchy parenchymal density in the right mid to lower lung and left lung base which could represent pulmonary edema or pneumonia. There is no gross pleural effusion. A pigtail percutaneous drainage catheter overlies the right upper abdomen. There is osteopenia and mild thoracolumbar spondylosis. Impression: Right greater than left bibasilar pulmonary edema/infiltrate. Consider cardiac decompensation with or without element of pneumonia. Right upper quadrant pigtail drainage catheter PROCEDURE INTERPRETED AT [facility] DEPARTMENT OF RADIOLOGY Final Report Signed by: Dr. Tashia Causey
--- NOTE | 2017-05-01 09:44 | Interventional Radiology Rpt ---
IR cholecystostomy complete Cholecystostomy catheter placement using ultrasound and fluoroscopic guidance Cholecystogram Abdominal ultrasound Clinical Information: The patient is not a surgical candidate due to pulmonary fibrosis and generalized deconditioning. Physician[s]: Dr. Lora Total number of images for the procedure: 37 Procedure: The patient was advised of the benefits, risks, and alternatives of the procedure and informed consent was obtained. A time out was performed with verification of the patient's name, MRN, site of procedure, and type of procedure to be performed. The patient was positioned in the supine position on the angiographic table. The site was prepped and draped in the usual sterile fashion. Local anesthesia only was used for the procedure. A stock fitter radiograph reveals no relevant abnormality. A preliminary ultrasound of the abdomen demonstrates markedly enlarged gallbladder with a large stone seen at the neck. The overlying soft tissues were anesthetized with lidocaine. A 20-gauge AccuStick needle was passed into the gallbladders under sonographic guidance. A cholecystogram was performed to confirm the needle tip location. An Amplatz wire was then inserted into the gallbladder under fluoroscopic guidance. A 10 [place] Skater all-purpose drain was passed into the gallbladder over the wire. The pigtail was formed and locked in position. A final cholecystogram was performed demonstrating the pigtail appropriately positioned with the gallbladder lumen. The gallbladder appears markedly dilated. The cystic duct was not visualized. The catheter was sutured in position with Percu-Stay device and a sterile dressing applied. The catheter was placed to gravity drainage. The patient tolerated the procedure well and was returned to the PRU in stable condition. EBL: < 5 mL. Complications: None. Conclusion: 1. Ultrasound of the abdomen demonstrates markedly dilated gallbladder with large stone at the neck. 2. Cholecystogram demonstrates dilated gallbladder. 3. Successful cholecystostomy catheter placement. 4. The catheter should be flushed daily with 10 ml normal saline daily. 5. If the patient remains non-operative, the catheter can be evaluated after 6 weeks for possible removal. PROCEDURE INTERPRETED AT [facility] DEPARTMENT OF RADIOLOGY Final Report Signed by: Mehrdad Lora
[2017-05-01] MEDS: ALBUTEROL/IPRATROPIUM 3 ML NEB RESP TX PRN (21:09)
[2017-05-02] MEDS: DEXTROSE 5% NACL 0.45% 1,000 ML IV SCH ×3 (02:44→19:05)
[2017-05-02] MEDS: PIPERACILLIN/TAZOBACTAM 3,375 MG in SODIUM CHLORIDE 0.9% 100 ML IV SCH ×3 (04:48→20:56)
--- NOTE | 2017-05-02 07:41 | Family Practice Progress Note ---
Family Practice - PN: Subj Interval history: Patient is certainly improved this morning. She did have a little vomiting last night and her daughter is concerned she may have aspirated slightly. She certainly not dyspneic this morning and is not coughing. Patient states she is feeling much better. She is having quite a bit of drainage from her cholecystostomy tube. Exam (Progress Note) - Constitutional Vitals: Period Temp Pulse Resp BP Sys/Carroll Pulse Ox Last 24 Hr 97.7 F-98.7 F 64-106 15-22 84-134/49-88 20-100 Exam: Objective a well-developed white female who is awake and alert. Patient states she is improved this morning. Cardiovascular: Heart rates regular without murmurs or gallops. Respiratory: Patient has scattered rhonchitic and coarse rales bilaterally. Abdomen: Patient has persistent right upper quadrant tenderness though this has lessened. Results - Labs CBC & BMP: 04/29/17 16:34 04/29/17 16:34 Lab Results: I have reviewed the past 24 hour labs Assessment and Plan (1) Acute cholecystitis Problem details: distended glabladder with RUQ pain Status: Acute Assessment and plan: 04/30/2017: Ultrasound gallbladder will be ordered. Surgery has been consulted 05/01/2017: Patient is scheduled for percutaneous cholecystostomy. 05/02/2017: Patient is doing well since her percutaneous cholecystostomy Current Visit: Yes
[2017-05-02] MEDS: HYDROmorphone 2 MG/1 ML VIAL IV PRN ×3 (07:47→22:19)
[2017-05-02 07:55] LABS: Basophils % 0.1 % (0.0-0.8); Eosinophils % 0.2 % (0.00-10.9); Hematocrit 33.4 VOL% (35.7-47.0); Hemoglobin 10.4 GM/DL (12.0-16.0); Immature Granulocytes % 1.2 %; Immature Granulocytes Absolute 0.22 #; Lymphocytes # 0.9 10*3/uL (1.4-4.0); Lymphocytes % 4.8 % (21.3-54.2); Mean Corpuscular HGB Conc 31.1 GM/DL (32-36); Mean Corpuscular Hemoglobin 30 PG (27-34); Mean Corpuscular Volume 94.9 FL (87-102); Mean Platelet Volume 9.5 FL (9.6-12.0); Monocytes # 0.9 10*3/uL (0.11-0.8); Monocytes % 4.8 % (1.7-12.7); Neutrophils # 16.9 10*3/uL (1.4-7.4); Neutrophils % 88.9 % (38.7-73.9); Platelet Count 208 T/CUMM (130-400); Red Blood Count 3.52 MC/CUMM (3.8-5.5); Red Cell Distribution Width 16.2 % (9.3-17.3); White Blood Count 18.9 T/CUMM (4-12)
[2017-05-02] MEDS: DOCUSATE SODIUM 100 MG CAPSULE PO SCH ×2 (08:00→22:40)
[2017-05-02] MEDS: predniSONE 20 MG TABLET PO SCH (08:00)
[2017-05-02] MEDS: FUROSEMIDE 20 MG TABLET PO SCH (08:00)
[2017-05-02] MEDS: SILDENAFIL 20 MG TABLET PO SCH ×3 (08:00→22:40)
[2017-05-02] MEDS: DILTIAZEM CD 120 MG CAPSULE PO SCH (08:03)
[2017-05-02] MEDS: POTASSIUM CHLORIDE 10 MEQ TABLET PO SCH ×2 (08:03→22:40)
[2017-05-02] MEDS: acetaZOLAMIDE 250 MG TABLET PO SCH ×2 (08:03→22:40)
[2017-05-02] MEDS: METHENAMINE HIPPURATE 1 GM TABLET PO SCH ×2 (08:03→22:40)
[2017-05-02] MEDS: METOPROLOL TARTRATE 50 MG TABLET PO SCH ×2 (08:03→22:40)
[2017-05-02] MEDS: SODIUM CHLORIDE 0.45% 1,000 ML IV SCH (08:03)
[2017-05-02] MEDS: PANTOPRAZOLE 40 MG TABLET PO SCH (08:04)
[2017-05-02] MEDS: SERTRALINE 50 MG TABLET PO SCH (08:04)
--- NOTE | 2017-05-02 08:25 | XRay Report ---
XR chest 1V portable Indication: Shortness of breath Comparison: Chest x-ray 05/01/2017 Technique: Portable AP chest was performed. Findings: Limited inspiration is demonstrated. Coarsened reticular and linear interstitial markings throughout the right lung with superimposed airspace opacities present throughout the right lung remain present with a rounded focus of density measuring 2 cm noted in the lower right chest. The left lung additionally demonstrates increased stranding opacities more prevalent within the left lung base. Bones and soft tissues are stable. Heart size is stable. Cholecystostomy tube is present. Impression: 1. This expiratory film suggests little change in the lung parenchyma compared to the previous study. Rounded density in the lower right chest is not identified on comparison images from CT of the abdomen and pelvis from 04/29/2017. PA/lateral chest x-ray may be useful for further evaluation as this may simply reflect prominent central vasculature. 2. Infectious process superimposed on chronic lung disease could be considered within the right lung and within the left lung base. 05/02/2017 8:20 AM PROCEDURE INTERPRETED AT [facility] DEPARTMENT OF RADIOLOGY Final Report Signed by: Dr. Leroy Martin
[2017-05-02 08:30] LABS: Albumin 2.2 G/DL (3.4-5.0); Bilirubin,Total 0.4 MG/DL (0.2-1.0); Calcium 7.7 MG/DL (8.5-10.1); Osmolality,Calculated 288.3 MOS/KG (273-304); Potassium 3.5 MMOL/L (3.5-5.1); Total Protein 4.8 G/DL (6.4-8.3)
[2017-05-02 09:05] LABS: Band Neutrophils 1 % (0-10); Hypochromasia 1+; Lymphocytes 7 % (20-55); Platelet Estimate Normal; Segmented Neutrophils 88 % (50-85); Total Cells Counted 100
--- NOTE | 2017-05-02 09:31 | General Surgery Progress Note ---
Assessment and Plan (1) Acute cholecystitis Problem details: distended glabladder with RUQ pain Status: Acute Assessment and plan: I think this is likely acute acalculous cholecystitis. We will confirm this with ultrasound. If this is the case then I think she would best be treated with percutaneous cholecystostomy. I discussed her options for treatment with her and her daughter at length. She is clearly a high risk for laparoscopic cholecystectomy for perioperative complications morbidity and mortality. I think that she would do better with percutaneous drainage if this is the case. We can arrange this today through interventional radiology. I agree with IV antibiotics. 05/02: She is status post percutaneous drainage. She still does not feel well and still has some pain that this may be better than before the drainage. She has rather foul-looking material in her drainage but no giovanna purulence. Her white blood cell count is actually a little higher than a couple days ago. She is not having fever. I would continue with drainage and antibiotics for now because she is a very poor candidate for surgery. Current Visit: Yes Subjective Patient reports: Present: feels better, still having pain, pain is less. Absent : nausea, vomiting, shortness of breath, fever Exam - Constitutional Vitals: Period Temp Pulse Resp BP Sys/Carroll Pulse Ox Last 24 Hr 97.7 F-98.7 F 64-96 18-22 84-109/49-64 74-100 General appearance: no acute distress - Eye Eye exam: Absent: scleral icterus - Respiratory Respiratory exam: Absent: accessory muscle use - GI/Abdominal GI/Abdominal exam: Present: tenderness, soft. Absent: distended, mass, rebound Results - Labs CBC & BMP: 05/02/17 07:38 05/02/17 07:38 Lab Results: I have reviewed the past 24 hour labs
[2017-05-02] MEDS: MORPHINE 2 MG/1 ML SYRINGE IV PRN (09:56)
[2017-05-02] MEDS: ONDANSETRON 4 MG/2 ML VIAL IV PRN (22:18)
[2017-05-02] MEDS: ALBUTEROL/IPRATROPIUM 3 ML NEB RESP TX PRN (22:40)
[2017-05-03] MEDS: DEXTROSE 5% NACL 0.45% 1,000 ML IV SCH ×5 (00:17→19:55)
[2017-05-03] MEDS: HYDROmorphone 2 MG/1 ML VIAL IV PRN ×3 (04:13→22:23)
[2017-05-03 04:14] LABS: Basophils % 0.1 % (0.0-0.8); Eosinophils % 0.1 % (0.00-10.9); Hematocrit 35.2 VOL% (35.7-47.0); Hemoglobin 10.9 GM/DL (12.0-16.0); Immature Granulocytes % 2.2 %; Immature Granulocytes Absolute 0.44 #; Lymphocytes # 0.3 10*3/uL (1.4-4.0); Lymphocytes % 1.7 % (21.3-54.2); Mean Corpuscular Hemoglobin 29 PG (27-34); Mean Corpuscular Volume 94.9 FL (87-102); Mean Platelet Volume 9.5 FL (9.6-12.0); Monocytes # 0.9 10*3/uL (0.11-0.8); Monocytes % 4.6 % (1.7-12.7); NRBC # 0.16 10*3/uL; Neutrophils % 91.3 % (38.7-73.9); Platelet Count 213 T/CUMM (130-400); Red Blood Count 3.71 MC/CUMM (3.8-5.5); Red Cell Distribution Width 15.9 % (9.3-17.3); White Blood Count 19.7 T/CUMM (4-12)
[2017-05-03 04:50] LABS: Anisocytosis Slight; Lymphocytes 2 % (20-55); Macrocytosis Slight; Nucleated Red Blood Cells 1 (0-5); Platelet Estimate Normal; Segmented Neutrophils 96 % (50-85); Total Cells Counted 100
[2017-05-03] MEDS: PIPERACILLIN/TAZOBACTAM 3,375 MG in SODIUM CHLORIDE 0.9% 100 ML IV SCH (05:09)
--- NOTE | 2017-05-03 05:18 | Family Practice Progress Note ---
Family Practice - PN: Subj Interval history: Patient had a fitful night according to her daughter. She has been more confused and disoriented and her daughter thought it may be due to the Zosyn and she had a very similar reaction to Levaquin in the past. I told her I did not think that Zosyn would do this. I told her we need to get a CT of her brain repeat her chest x-ray and I am going to repeat some of her laboratory studies. Patient's urine culture was positive for Klebsiella pneumoniae and I will put her on Rocephin instead. Exam (Progress Note) - Constitutional Vitals: Period Temp Pulse Resp BP Sys/Carroll Pulse Ox Last 24 Hr 97.5 F-98.9 F 74-106 18-24 107-133/57-76 90-99 Exam: Objective a well-developed white female who is somnolent and would not wake up for me. She did not have any fever on the night Cardiovascular: Heart rates regular without murmurs or gallops. Respiratory: Patient has scattered rhonchitic and coarse rales bilaterally. Abdomen: Patient has persistent right upper quadrant tenderness though this has lessened. Results - Labs CBC & BMP: 05/03/17 03:41 05/02/17 07:38 Lab Results: I have reviewed the past 24 hour labs Assessment and Plan (1) Acute cholecystitis Problem details: distended glabladder with RUQ pain Status: Acute Assessment and plan: 04/30/2017: Ultrasound gallbladder will be ordered. Surgery has been consulted 05/01/2017: Patient is scheduled for percutaneous cholecystostomy. 05/02/2017: Patient is doing well since her percutaneous cholecystostomy 05/03/2017: Patient's white blood count was elevated and her sensorium is declining. I suspect she may have metabolic encephalopathy but will order CT of the brain and repeat her chest x-ray. I will switch her to Rocephin. Current Visit: Yes
--- NOTE | 2017-05-03 06:44 | CT Report ---
CT head/brain wo con Indication: Altered mental status Comparison: Head CT 05/14/2016. Technique: CT of the brain was performed without administration of intravenous contrast. The CT examination was performed using one or more of the following dose reduction techniques: Automatic exposure control, adjustment of the mA and kV according to patient size, use of acute or iterative reconstruction techniques. Findings: There is no evidence of acute intracranial mass, hemorrhage, or infarction. Generalized cerebral atrophy is present. Areas of decreased attenuation within the periventricular white matter and cerebral white matter are present which could be compatible with microvascular ischemia. Bilateral basal ganglia calcification is present, stable. The basal cisterns are patent. No significant abnormality is demonstrated to involve the posterior fossa or cerebellum. Orbits and globes demonstrate no evidence of significant pathology. Previous bilateral cataract surgery is suggested. Sphenoid sinuses are bilaterally opacified and demonstrate high attenuation material that could reflect evidence of fungal infection or hemorrhage. A few of the bilateral ethmoid air cells are partially opacified with fluid. Left maxillary sinus is completely opacified with fluid. No significant abnormality is demonstrated to involve the mastoid air cells. The calvarium and overlying soft tissues demonstrate no evidence of acute pathology. Impression: 1. No CT evidence of acute intracranial pathology. 2. Paranasal sinus disease is present as detailed. 05/03/2017 6:39 AM PROCEDURE INTERPRETED AT [facility] DEPARTMENT OF RADIOLOGY Final Report Signed by: Dr. Leroy Martin
[2017-05-03 07:14] LABS: Basophils % 0.1 % (0.0-0.8); Hematocrit 33.8 VOL% (35.7-47.0); Hemoglobin 10.3 GM/DL (12.0-16.0); Immature Granulocytes % 2.6 %; Immature Granulocytes Absolute 0.55 #; Lymphocytes # 0.6 10*3/uL (1.4-4.0); Lymphocytes % 2.7 % (21.3-54.2); Mean Corpuscular HGB Conc 30.5 GM/DL (32-36); Mean Corpuscular Hemoglobin 29 PG (27-34); Mean Corpuscular Volume 95.8 FL (87-102); Mean Platelet Volume 9.5 FL (9.6-12.0); Monocytes # 1.4 10*3/uL (0.11-0.8); Monocytes % 6.3 % (1.7-12.7); NRBC # 0.08 10*3/uL; Neutrophils # 18.8 10*3/uL (1.4-7.4); Neutrophils % 88.3 % (38.7-73.9); Platelet Count 216 T/CUMM (130-400); Red Blood Count 3.53 MC/CUMM (3.8-5.5); White Blood Count 21.3 T/CUMM (4-12)
[2017-05-03] MEDS: cefTRIAXone 1,000 MG in SODIUM CHLORIDE 0.9% 100 ML IV SCH (07:27)
[2017-05-03] MEDS: SODIUM CHLORIDE 0.45% 1,000 ML IV SCH (07:27)
[2017-05-03 07:39] LABS: Band Neutrophils 1 % (0-10); Burr Cells Slight; Hypochromasia Slight; Lymphocytes 3 % (20-55); Platelet Estimate Adequate; Segmented Neutrophils 87 % (50-85); Total Cells Counted 100
[2017-05-03 07:40] LABS: Macrocytosis Slight
[2017-05-03 07:45] LABS: Alanine Aminotransferase 38 U/L (13-56); Albumin 2.2 G/DL (3.4-5.0); Alkaline Phosphatase 69 U/L (45-117); Aspartate Amino Transferase 19 U/L (0-37); Bilirubin,Total < 0.39 MG/DL (0.2-1.0); Blood Urea Nitrogen 40 MG/DL (7-18); Calcium 7.7 MG/DL (8.5-10.1); Glucose 196 MG/DL (74-106); Osmolality,Calculated 287.8 MOS/KG (273-304); Sodium 137 MMOL/L (136-145); Total Protein 5.3 G/DL (6.4-8.3)
--- NOTE | 2017-05-03 07:59 | XRay Report ---
XR chest 1V portable Indication: Cough and congestion. Comparison: Chest x-ray 05/02/2017. Technique: Portable AP chest was performed. Findings: A very limited inspiration is demonstrated. Cardiomediastinal silhouette is grossly stable. Bilateral perihilar stranding opacities and interval increase in airspace opacities in the right midlung are noted. Bones and soft tissues are stable. Cholecystostomy tube is suggested and appears stable. Impression: 1. While likely influenced by the expiratory nature of the study, the lung parenchyma suggests pulmonary edema or infection. Worsening airspace opacities on the right may reflect worsening pulmonary edema or infection. 05/03/2017 7:47 AM PROCEDURE INTERPRETED AT [facility] DEPARTMENT OF RADIOLOGY Final Report Signed by: Dr. Leroy Martin
--- NOTE | 2017-05-03 08:35 | General Surgery Progress Note ---
Assessment and Plan (1) Acute cholecystitis Problem details: distended glabladder with RUQ pain Status: Acute Assessment and plan: I think this is likely acute acalculous cholecystitis. We will confirm this with ultrasound. If this is the case then I think she would best be treated with percutaneous cholecystostomy. I discussed her options for treatment with her and her daughter at length. She is clearly a high risk for laparoscopic cholecystectomy for perioperative complications morbidity and mortality. I think that she would do better with percutaneous drainage if this is the case. We can arrange this today through interventional radiology. I agree with IV antibiotics. 05/02: She is status post percutaneous drainage. She still does not feel well and still has some pain that this may be better than before the drainage. She has rather foul-looking material in her drainage but no giovanna purulence. Her white blood cell count is actually a little higher than a couple days ago. She is not having fever. I would continue with drainage and antibiotics for now because she is a very poor candidate for surgery. 05/03: She has had a decline in overall from yesterday which is obvious. She is obtunded. She is unable to give a history. She moans but does deny having abdominal pain when I palpate her abdomen. I cannot appreciate any right upper quadrant tenderness. Prior to percutaneous drainage her liver tests were up a bit and came down to normal and these are still normal. She has had an elevated white blood cell count and her chest x-ray looks like widespread pneumonia versus pulmonary edema. I suspect that her decline is from a pulmonary source rather than her gallbladder. I had a long discussion with her family and I do not think that surgical intervention at this time is a good option and I do not think that her gallbladder has gotten worse. Also discussed this with Dr. Murcia as well. Overall I think that her prognosis is very poor because of her severe medical comorbidities and likely development of pneumonia. Current Visit: Yes Subjective Patient reports: Present: shortness of breath, other (She has had a decline in her mental status). Absent: still having pain Exam - Constitutional Vitals: Period Temp Pulse Resp BP Sys/Carroll Pulse Ox Last 24 Hr 97.5 F-98.9 F 75-106 19-24 107-133/57-76 90-99 General appearance: mild distress - Respiratory Respiratory exam: Present: accessory muscle use - GI/Abdominal GI/Abdominal exam: Present: soft. Absent: distended, tenderness, rebound Results - Labs CBC & BMP: 05/03/17 06:15 05/03/17 06:15 Lab Results: I have reviewed the past 24 hour labs - Diagnostic Findings Procedure: Chest x-ray: image reviewed by me, report reviewed by me, CT: report reviewed by me
[2017-05-03] MEDS: METHENAMINE HIPPURATE 1 GM TABLET PO SCH (10:07)
[2017-05-03] MEDS: DOCUSATE SODIUM 100 MG CAPSULE PO SCH (10:07)
[2017-05-03] MEDS: DILTIAZEM CD 120 MG CAPSULE PO SCH (10:07)
[2017-05-03] MEDS: acetaZOLAMIDE 250 MG TABLET PO SCH (10:07)
[2017-05-03] MEDS: POTASSIUM CHLORIDE 10 MEQ TABLET PO SCH (10:07)
[2017-05-03] MEDS: predniSONE 20 MG TABLET PO SCH (10:08)
[2017-05-03] MEDS: METOPROLOL TARTRATE 50 MG TABLET PO SCH (10:08)
[2017-05-03] MEDS: SERTRALINE 50 MG TABLET PO SCH (10:09)
[2017-05-03] MEDS: SILDENAFIL 20 MG TABLET PO SCH ×2 (10:09→15:33)
[2017-05-03] MEDS: FUROSEMIDE 20 MG TABLET PO SCH (10:10)
[2017-05-03] MEDS: PANTOPRAZOLE 40 MG TABLET PO SCH (10:10)
[2017-05-03 10:29] LABS: ABG Base Excess -7.3 MMOL/L (-2.5-2.5); ABG HCO3 25.6 MMOL/L (20-26); ABG Oxygen Saturation 96.5 % (95-100); ABG PO2 92.8 MM HG (80-95)
[2017-05-03 10:32] LABS: ABG PCO2 108.1 MM HG (35-48); ABG PH 6.993 (7.35-7.45)
[2017-05-03] MEDS: VANCOMYCIN INJ 1,000 MG in SODIUM CHLORIDE 0.9% 250 ML IV SCH (10:46)
[2017-05-03] MEDS: methylPREDNISolone SOD SUC 125 MG/2 ML VIAL IV SCH (10:47)
[2017-05-03] MEDS: FUROSEMIDE 40 MG/4 ML VIAL IV SCH (10:47)
[2017-05-03] MEDS: PANTOPRAZOLE 40 MG VIAL IV SCH (10:47)
[2017-05-03] MEDS ORDERED: METOPROLOL TARTRATE 5 MG/5 ML VIAL IV PRN (12:33)
[2017-05-03 13:42] LABS: ABG HCO3 24.6 MMOL/L (20-26); ABG Oxygen Saturation 98.5 % (95-100); ABG PO2 136.6 MM HG (80-95); ABG TCO2 27.4 MMOL/L (23-27); Pt O2 Delivery Device BIPAP
[2017-05-03 13:46] LABS: ABG PH 7.053 (7.35-7.45)
[2017-05-03 13:47] LABS: ABG PCO2 90.4 MM HG (35-48)
[2017-05-04] MEDS: DOCUSATE SODIUM 100 MG CAPSULE PO SCH ×3 (02:30→23:39)
[2017-05-04] MEDS: METOPROLOL TARTRATE 50 MG TABLET PO SCH ×3 (02:30→23:38)
[2017-05-04] MEDS: METHENAMINE HIPPURATE 1 GM TABLET PO SCH ×3 (02:30→23:38)
[2017-05-04] MEDS: acetaZOLAMIDE 250 MG TABLET PO SCH ×3 (02:30→23:39)
[2017-05-04] MEDS: methylPREDNISolone SOD SUC 125 MG/2 ML VIAL IV SCH ×3 (02:30→22:36)
[2017-05-04] MEDS: POTASSIUM CHLORIDE 10 MEQ TABLET PO SCH ×3 (02:30→23:38)
[2017-05-04] MEDS: SILDENAFIL 20 MG TABLET PO SCH ×4 (03:07→23:37)
[2017-05-04 03:12] LABS: ABG Base Excess -7.7 MMOL/L (-2.5-2.5); ABG HCO3 18.2 MMOL/L (20-26); ABG PCO2 64.8 MM HG (35-48); Allen Test Positive; Pt O2 Delivery Device BIPAP
[2017-05-04] MEDS: ONDANSETRON 4 MG/2 ML VIAL IV PRN ×2 (03:25→18:00)
[2017-05-04 03:53] LABS: ABG PH 7.141 (7.35-7.45)
[2017-05-04] MEDS: DEXTROSE 5% NACL 0.45% 1,000 ML IV SCH ×2 (04:24→14:26)
[2017-05-04] MEDS: HYDROmorphone 2 MG/1 ML VIAL IV PRN ×4 (05:31→18:02)
[2017-05-04] MEDS: FUROSEMIDE 40 MG/4 ML VIAL IV SCH ×2 (05:40→09:12)
[2017-05-04] MEDS: cefTRIAXone 1,000 MG in SODIUM CHLORIDE 0.9% 100 ML IV SCH (06:54)
[2017-05-04] MEDS: SODIUM CHLORIDE 0.45% 1,000 ML IV SCH (09:41)
[2017-05-04] MEDS: DILTIAZEM CD 120 MG CAPSULE PO SCH (09:41)
[2017-05-04] MEDS: predniSONE 20 MG TABLET PO SCH (09:42)
[2017-05-04] MEDS: SERTRALINE 50 MG TABLET PO SCH (09:42)
[2017-05-04] MEDS: PANTOPRAZOLE 40 MG VIAL IV SCH (09:49)
--- NOTE | 2017-05-04 10:58 | Internal Med Progress Note ---
Assessment and Plan (1) Acute cholecystitis Problem details: distended glabladder with RUQ pain Status: Acute Assessment and plan: 71-year-old female admitted to acute care * Acute cholecystitis. Patient is status post cholecystotomy tube placement. She continues to have abdominal pain. She is not a candidate for cholecystectomy. She is on IV antibiotics * Metabolic acidosis. Her pH is mildly improved * CHF. IV Lasix * Pulmonary hypertension. She has been on Revatio * Patient is on IV steroids * Discussed in detail with her daughter. She understands that patient is critically ill. She was on hospice at home Current Visit: Yes (2) Congestive heart failure Status: Acute Current Visit: No (3) History of pulmonary fibrosis Status: Acute Current Visit: No (4) Hypercapnic acidosis Status: Acute Current Visit: No (5) Pulmonary fibrosis Status: Acute Current Visit: No (6) Paroxysmal atrial fibrillation Status: Chronic Current Visit: No (7) Rheumatoid arthritis Problem details: Long standing RA Status: Chronic Current Visit: No Qualifiers: Rheumatoid arthritis location: hand Laterality: bilateral Internal Medicine - PN: Subj Interval history: 71-year-old female with multiple medical problems admitted with acute cholecystitis. She underwent a cholecystotomy tube placement. She has gradually deteriorated. Her daughter is present and had several questions. Patient is unable to answer any questions. She is on BiPAP Exam (Progress Note) - Constitutional Vitals: Period Temp Pulse Resp BP Sys/Carroll Pulse Ox Last 24 Hr 96.6 F-99.8 F 82-97 18-22 110-140/65-76 97-100 Exam: Examination: GENERAL: Poorly responsive CVS: Regular rate and rhythm. S1 and S2 are normal. RESPIRATORY: Scattered rhonchi with bilateral rales ABDOMEN: Tenderness in right upper quadrant EXT: 1+ edema Results - Labs CBC & BMP: 05/03/17 06:15 05/03/17 06:15 Lab Results: I have reviewed the past 24 hour labs
--- NOTE | 2017-05-04 11:01 | Event Note ---
05/04/2017. Patient with a cholecystostomy tube in place at this time seeming to be somewhat septic. She is on CPAP at this time. It is reported that she has had no nutrition for the last couple weeks. Will maintain supportive care.
[2017-05-04] MEDS ORDERED: NALOXONE 0.4 MG/ML VIAL IV PRN (18:24)
[2017-05-04] MEDS: MORPHINE 2 MG/1 ML SYRINGE IV PRN (19:02)
[2017-05-04] MEDS: VANCOMYCIN INJ 1,000 MG in SODIUM CHLORIDE 0.9% 250 ML IV SCH (22:38)
[2017-05-05] MEDS: MORPHINE 2 MG/1 ML SYRINGE IV PRN ×4 (00:33→10:32)
[2017-05-05] MEDS: DEXTROSE 5% NACL 0.45% 1,000 ML IV SCH ×2 (02:40→04:42)
[2017-05-05] MEDS: cefTRIAXone 1,000 MG in SODIUM CHLORIDE 0.9% 100 ML IV SCH (05:02)
--- NOTE | 2017-05-05 07:47 | Discharge Summary ---
Hospital Course - Hospital Course Hospital Course: Patient is a 71-year-old female with history of multiple medical problems including rheumatoid arthritis, atrial fibrillation, see previous CVA, CHF, hypertension who was admitted with increased nausea vomiting and abdominal pain. Patient was found to have acute cholecystitis. She was not a candidate for cholecystectomy and a cholecystotomy tube was placed. Patient has deteriorated over last few days. She has been on hospice for over a year at home. She has been on IV antibiotics. Patient did develop respiratory failure and was on BiPAP for past few days. Her daughter and have decided to take her home on hospice. She will be continued on current medications. I doubt if she will be able to take medications. Discussion with her daughter about her situation. Her daughter does have liquid morphine as well as Ativan at home to keep her comfortable. She will be discharged today to home with hospice. They will call Dr. Murcia office for any further needs Diagnosis - Discharge Diagnosis (1) Acute cholecystitis Status: Acute (2) Congestive heart failure Status: Acute (3) History of pulmonary fibrosis Status: Acute (4) Hypercapnic acidosis Status: Acute (5) Pulmonary fibrosis Status: Acute (6) Paroxysmal atrial fibrillation Status: Chronic (7) Rheumatoid arthritis Status: Chronic Discharge Plan - Discharge Data Disposition: Hospice - Home Condition at Discharge: Critical Discharge Diet: other (As tolerated) Activity: other (Bedrest) - Discharge Medications New Albuterol/Ipratropium Neb [Duoneb] 3 ml RESP TX RT Q4H PRN PRN Reason: Shortness Of Breath/Wheezing Continue dilTIAZem HCl [Cartia XT] 120 mg PO DAILY Metoprolol Tartrate Tab [Lopressor Tab] 50 mg PO BID #30 tablet Docusate Sodium Cap [Colace Cap] 100 mg PO BID #60 capsule HYDROcodone/ACETAMIN 10-325 [Arp 10-325] 1 tablet PO Q4-6H PRN PRN Reason: Pain acetaZOLAMIDE TAB [Diamox Tab] 250 mg PO BID #60 tablet Sildenafil [Revatio] 20 mg PO TID #90 tablet Sertraline [Zoloft] 50 mg PO DAILY Potassium Chloride 10 meq PO BID Pantoprazole Tab [Protonix Tab] 40 mg PO DAILY predniSONE TAB [PredniSONE] 20 mg PO DAILY Apixaban [Eliquis] 2.5 mg PO BID Furosemide 20 mg PO DAILY Methenamine Hippurate 1 gm PO BID - Follow Up or Referral - Forms/Instructions Exam - Constitutional Vitals: Period Temp Pulse Resp BP Sys/Carroll Pulse Ox Last 24 Hr 97.9 F-98 F 92-102 16-20 156-159/79-80 97-100 Exam: Examination: GENERAL: Poorly responsive CVS: Regular rate and rhythm. S1 and S2 are normal. RESPIRATORY: Scattered rhonchi with bilateral rales ABDOMEN: Tenderness in right upper quadrant. She has a cholecystotomy tube with drainage Extremities: 1+ edema Discharge Results Procedures and tests throughout hospitalization: Pending Orders 05/03/17 10:01 Blood Culture Stat 05/06/17 09:30 Vancomycin,Trough Routine Labs on day of discharge: Preliminary micro results at discharge 05/03/17 10:01 Blood Culture - Preliminary Blood No growth at 1 day 05/03/17 10:01 Blood Culture - Preliminary Blood No growth at 1 day DS: Provider Date of admission: 04/29/17 20:22 Primary care physician: . No PCP Attending physician on admission: Yaniv Murcia MD Consults: 04/29/17 21:50 Consult to Case Mgmt/Social Srvs [CONS] Routine Reason for Case Mgmt/Social Srvs: Discharge Planning Consult to Physician [CONS] Routine Comment: I spoke with him and he is aware of this patient. Consulting Provider: Jun Mcintosh III. When should Consulting Provider be notified: In am 05/03/17 07:14 Consult to Physician [CONS] Routine Comment: Consulting Provider: Damon Avilez When should Consulting Provider be notified: Now Consult Notification Comment: [facility] 05/03/17 09:28 Consult to Pharmacy [CONS] Routine Reason for Pharmacy Consult: Dose/Manage Vancomycin Discharging clinician: Janak Stratton MD
[2017-05-05 08:32] VITALS: BP 167/98
[2017-05-05] MEDS: DILTIAZEM CD 120 MG CAPSULE PO SCH (08:34)
[2017-05-05] MEDS: DOCUSATE SODIUM 100 MG CAPSULE PO SCH (08:34)
[2017-05-05] MEDS: acetaZOLAMIDE 250 MG TABLET PO SCH (08:34)
[2017-05-05] MEDS: SODIUM CHLORIDE 0.45% 1,000 ML IV SCH (08:34)
[2017-05-05] MEDS: SERTRALINE 50 MG TABLET PO SCH (08:35)
[2017-05-05] MEDS: POTASSIUM CHLORIDE 10 MEQ TABLET PO SCH (08:35)
[2017-05-05] MEDS: METOPROLOL TARTRATE 50 MG TABLET PO SCH (08:35)
[2017-05-05] MEDS: METHENAMINE HIPPURATE 1 GM TABLET PO SCH (08:35)
[2017-05-05] MEDS: SILDENAFIL 20 MG TABLET PO SCH (08:35)
[2017-05-05] MEDS: FUROSEMIDE 40 MG/4 ML VIAL IV SCH (09:17)
[2017-05-05] MEDS: PANTOPRAZOLE 40 MG VIAL IV SCH (09:17)
[2017-05-05] MEDS: methylPREDNISolone SOD SUC 125 MG/2 ML VIAL IV SCH (10:32)
--- NOTE | 2017-05-10 09:57 | Physician Query Form ---
CLICK EDIT DOCUMENT TO SELECT QUERY ANSWER --> OK --> SIGN Flakita oLrd RN Clinical Acquisitions Librarian W) [phone] (f) [phone] [email or web address] PROVIDERS: Make your selection(s) from the choices in EACH section by typing an "x" and enter comments in the comment section. Please use your independent medical judgment in providing your response. This request does not imply that any particular answer is desired or expected. CLINICAL INDICATORS: (Providers should not edit this section) Based on documentation of "Accessory muscle use" "Acute CHF" "She is on CPAP at this time" Room air SAT of 74%. SATS on CPAP up to 99%. If possible, please further clarify the type and acuity of respiratory diagnosis : ACUITY: (x ) Acute ( ) Chronic ( ) Acute on Chronic TYPE: (x ) Respiratory failure with hypoxia ( ) Respiratory failure with hypercapnia ( ) Respiratory Arrest ( ) Postprocedural/postoperative respiratory failure ( ) ARDS (Adult/Acute Respiratory Distress Syndrome) ( ) Other, please specify: ( ) Clinically unable to determine Recognized criteria for respiratory failure PH <7.35 or >7.45 PO2 <60 PCO2 >50 RR >24 O2 Sat <90% on RA or <95% on O2 Use of accessory muscles Unable to speak in full sentences Intubation is not required COMMENTS: PLEASE ALSO DOCUMENT RESPONSE IN PROGRESS NOTES AND/OR DISCHARGE SUMMARY Use of terms such as suspected, likely, or probable (associated with a specific diagnosis that is being evaluated, monitored, or treated as if it exists) are acceptable and can be restated in the discharge summary if not ruled out. MTDD
--- NOTE | 2017-05-10 10:00 | Physician Query Form ---
CLICK EDIT DOCUMENT TO SELECT QUERY ANSWER --> OK --> SIGN Flakita Lord RN Clinical Loan Review Officer W) [phone] (f) [phone] [email or web address] PROVIDERS: Make your selection(s) from the choices in EACH section by typing an "x" and enter comments in the comment section. Please use your independent medical judgment in providing your response. This request does not imply that any particular answer is desired or expected. CLINICAL INDICATORS: (Providers should not edit this section) Based on documentation of "UTI" "Acute cholecystitis" "she has been more confused and disoriented" "Seeming somewhat septic" Teated with IV antibiotics and IV fluids ACUITY: (x) Acute ( ) Acute on Chronic ( ) Chronic ( ) Clinically unable to determine NATURE: ( ) Delirium due to general medical condition ( ) Dementia (x ) Encephalopathy ( ) Unconscious ( ) Transient level of awareness ( ) Comatose ( ) Locked-in State ( ) Persistent Vegetative State ( ) Other, please specify: ( ) Clinically unable to determine Please indicate the underlying cause of the altered mental status (CHECK ALL THAT APPLY): ( ) Baseline dementia ( ) Alzheimer's disease ( ) Parkinson's disease ( ) Lewy body dementia ( ) Acute stroke ( ) Late effect of stroke ( ) Reactive (from emotional stress, psychological trauma) ( ) Due to narcotics/other drugs ( ) Post procedural delirium ( ) Transient ischemic attack ( ) Generalized cerebral edema ( ) Normal pressure hydrocephalus ( ) Psychiatric illness ( ) Other, please specify: (x ) Clinically unable to determine Please indicate if there is an infection, sepsis, dehydration or specific organ failure that is causing the dementia. Be specific with clarifying the relationship between that process and the mental status change. COMMENTS: PLEASE ALSO DOCUMENT RESPONSE IN PROGRESS NOTES AND/OR DISCHARGE SUMMARY Use of terms such as suspected, likely, or probable (associated with a specific diagnosis that is being evaluated, monitored, or treated as if it exists) are acceptable and can be restated in the discharge summary if not ruled out. MTDD
--- NOTE | 2017-05-10 10:15 | Physician Query Form ---
CLICK EDIT DOCUMENT TO SELECT QUERY ANSWER --> OK --> SIGN PROVIDERS: Make your selection(s) from the choices in EACH section by typing an "x" and enter comments in the comment section. Please use your independent medical judgment in providing your response. This request does not imply that any particular answer is desired or expected. CLINICAL INDICATORS: (Providers should not edit this section) Based on documentation of "Patient with a cholecystostomy tube in place at this time seeming to be somewhat septic" "Acute Cholecystitis" "UTI" " urine culture was positive for Klebsiella pneumoniae " "accessory muscle use" "on CPAP at this time" temp of 96.4, bp of 97/56, hr from 49 to 106, WBC from 16.8 to 21.3. Treated with IV Rocephin, IV Zosyn, NS bolus and 1/2 NS infusion. Please clarify which, if any, of the following is the etiology of the above symptoms and treatment rendered: ( ) Sepsis due to a localized infection, please specify infection: ( ) Severe Sepsis (sepsis with acute organ failure) - Please specify type acute organ failure: (x ) Septic Shock (severe sepsis with hypotension) ( ) SIRS of noninfectious origin ( ) Sepsis due to a device, implant or graft, please specify: ( ) Localized infection only, without systemic illness, please specify infection : ( ) Bacteremia (abnormal lab finding only, does not indicate systemic illness) ( ) Other condition, please specify: ( ) Clinically unable to determine Criteria for Sepsis (SIRS due to an infection) should be based on 2 or more of the following being present: Temperature > 101F or < 96.8F WBC > 12,000 or < 4,000, or > 10% bands Tachycardia HR > 90 beats/minute Tachypnea RR > 20 breaths/minute or PaCO2 > 32mmHg Lactate level > 2.0 mmol/L (>4 is equivalent to severe sepsis) Altered Mental Status Mottling of skin or prolonged capillary refill Non-diabetic hyperglycemia (blood sugar >120 mg/dl) Other evidence of acute organ failure associated with sepsis ( severe sepsis) COMMENTS: PLEASE ALSO DOCUMENT RESPONSE IN PROGRESS NOTES AND/OR DISCHARGE SUMMARY Use of terms such as suspected, likely, or probable (associated with a specific diagnosis that is being evaluated, monitored, or treated as if it exists) are acceptable and can be restated in the discharge summary if not ruled out. MTDD
== END 2017-05-05 10:55 | disposition hospice, home (50) | DRG 444 ==
LOC: N.ED 16:10 → N.EDINP 20:22 → N.2E 21:25
PROVIDERS: ADMIT Family Medicine; ATTEND Family Medicine